=== PATIENT | male | born 1935 ===

== ENCOUNTER 2017-12-28 11:08 | Inpatient (IN) | payer OTHER ==
[2017-12-28] MEDS ORDERED: Sodium Chloride 0.9% 1,000 ML IV ONE (12:00)
--- NOTE | 2017-12-28 12:02 | ED PDOC ---
HPI:Nausea, Vomiting, Diarrhea Time Seen by Provider: 12/28/17 11:49 Chief Complaint (Nursing): Headache Chief Complaint (Provider): Dizziness History Per: Patient History/Exam Limitations: no limitations Onset/Duration Of Symptoms: Days (today) Additional Complaint(s): Pt. went up stairs and sit on a chair. He then started getting dizzy so he stood up and fell hitting his head on the ground. No numbness, tingles, weakness, abd pain, leg or arm pain, chest pain, dyspnea. No fever. Pt. with no headache or vision changes. Dizziness is like a light-headedness. NIHSS Stroke Scale - Date/Time Evaluation Performed Date Performed: 12/28/17 Time Performed: 11:20 When Was NIHSS Performed: Baseline - How Severe is the Stroke Level of Consciousness: 0=Alert LOC to Questions: 0=Both comments correct LOC to commands: 0=Obeys both correctly Best Gaze: 0=Normal Visual: 0=No visual loss Facial: 0=Normal Motor Arm - Left: 0=No drift Motor Arm - Right: 0=No drift Motor Leg - Left: 0=No drift Motor Leg - Right: 0=No drift Limb Ataxia: 1=Present Upper or Lower Sensory: 0=Normal Best Language: 0=No aphasia Dysarthia: 0=Normal articulation Extinction & Inattention (Neglect): 0=Normal, no object Score: 1 rTPA Inclusion/Exclusion - Refusal of Treatment Patient Refused Treatment: No - Inclusion Criteria for Altepase Patient is 18 years or Older: Yes The Clinical Diagnosis of Ischemic Stroke That is Causing a Potentially Disabling Neurological Deficit: No Time of Onset is Well Established to be Less Than 270 Minute Before Treatment Would Begin: Yes Risk/Benefit Discussed With Patient/Family Member Present: No Past Medical History Reviewed: Nursing Documentation, Vital Signs Vital Signs: Last Vital Signs Temp 98.1 F 12/28/17 11:11 Pulse 84 12/28/17 11:11 Resp 20 12/28/17 11:11 BP 176/99 H 12/28/17 11:11 Pulse Ox 97 12/28/17 11:11 - Medical History PMH: Anemia, Colonic Polyps, Diabetes, Gall Bladder Disease, HTN, Hypercholesterolemia, Hypothyroidism, Chronic Kidney Disease (NEPHRECTOMY 2006 RIGHT BENIGN MASS), TIA - Surgical History Surgical History: No Surg Hx - Family History Family History: States: Unknown Family Hx - Living Arrangements Living Arrangements: With Family - Social History Current smoker - smoking cessation education provided: No - Immunization History Hx Influenza Vaccination: Yes Hx Pneumococcal Vaccination: No - Home Medications Home Medications: Ambulatory Orders Medication Instructions Recorded Aspirin [Ecotrin] 81 mg PO DAILY 12/28/17 Ergocalciferol (Vitamin D2) 50,000 unit PO QWK 12/28/17 [Vitamin D2] Lactulose [Generlac] 15 ml PO DAILY 12/28/17 Levothyroxine [Synthroid] 75 mcg PO DAILY 12/28/17 Linagliptin [Tradjenta] 5 mg PO DAILY 12/28/17 Losartan [Cozaar] 100 mg PO DAILY 12/28/17 Omeprazole 20 mg PO DAILY 12/28/17 Pravastatin Sodium [Pravachol] 20 mg PO HS 12/28/17 - Allergies Allergies/Adverse Reactions: Allergies Allergy/AdvReac Type Severity Reaction Status Date / Time No Known Allergies Allergy Verified 12/28/17 11:24 Review of Systems ROS Statement: Except As Marked, All Systems Reviewed And Found Negative Gastrointestinal: Positive for: Nausea, Vomiting (nonbloody) Neurological: Positive for: Dizziness Physical Exam - Reviewed Nursing Documentation Reviewed: Yes Vital Signs Reviewed: Yes - Physical Exam Appears: Positive for: Uncomfortable Head Exam: Positive for: NORMAL INSPECTION, NORMOCEPHALIC. Negative for: ATRAUMATIC (R forehead abrasion and small hematoma; R cheek with abrasion.) Skin: Positive for: Normal Color, Warm, DRY Eye Exam: Positive for: EOMI, Normal appearance, PERRL ENT: Positive for: Normal ENT Inspection Neck: Positive for: Normal, Painless ROM Cardiovascular/Chest: Positive for: Regular Rate, Rhythm Respiratory: Positive for: CNT, Normal Breath Sounds Gastrointestinal/Abdominal: Positive for: Normal Exam, Soft. Negative for: Tenderness Back: Positive for: Normal Inspection. Negative for: L CVA Tenderness, R CVA Tenderness Extremity: Positive for: Normal ROM. Negative for: Tenderness, Pedal Edema Neurologic/Psych: Positive for: Alert, script girl II-XII, Oriented. Negative for: Motor/Sensory Deficits, Aphasia, Facial Droop - Laboratory Results Result Diagrams: 12/28/17 12:25 12/28/17 12:25 Interpretation Of Abn Labs: 15 wbc - ECG ECG: Positive for: Interpreted By Me, Viewed By Me ECG Rhythm: Positive for: Left Bundle Branch Block O2 Sat by Pulse Oximetry: 97 Pulse Ox Interpretation: Normal - Progress ED Course And Treament: IMPRESSION: Small Coon contusions are identified at the bilateral frontal and right temporal lobes without significant mass effect or even definite local edema at this time. Neurological and CT follow-up are advised. No significant mass effect. Right frontal chronic lobar infarction. Age-related degenerative changes appear age-appropriate. Bilateral basal ganglia chronic lacunes identified. 1346: Spoke with Dr. Amaral. Will admit ICU. Spoke with Dr. Gonzalez. Will admit for Dr. Lauren. Paged out to Dr. Sotelo and Dr. Villarreal. 1359: Spoke with Dr. Villarreal. Will consult. No additional tx at this time. Stable. AAOx3. Disposition - Clinical Impression Clinical Impression: Cerebral contusion without loss of consciousness, Brain bleed, Dizziness - Patient ED Disposition Is Patient to be Admitted: Yes Counseled Patient/Family Regarding: Studies Performed, Diagnosis - Disposition Disposition Time: 14:01 Condition: FAIR - Pt Status Changed To: Hospital Disposition Of: Inpatient - Admit Certification Admit to Inpatient:: After my assessment, the patient will require hospitalization for at least two midnights. This is because of the severity of symptoms shown, intensity of services needed, and/or the medical risk in this patient being treated as an outpatient. - POA Present On Arrival: Falls Or Trauma
[2017-12-28 12:31] LABS: BASO # 0.1 K/uL (0.0-0.2); BASO % 0.7 % (0.0-2.0); EOS # 0.5 K/uL (0.0-0.7); EOS % 3.1 % (0.0-4.0); HEMOGLOBIN 12.1 g/dL (12.0-18.0); LYMPH % 33.7 % (20.0-40.0); MEAN CELL VOLUME 98.2 fl (80.0-94.0); MEAN CORPUSCULAR HEMOGLOBIN 31.4 pg (27.0-31.0); MEAN PLATELET VOLUME 9.5 fl (7.2-11.7); MONO # 1.4 K/uL (0.0-0.8); MONO % 9.2 % (0.0-10.0); NEUT % 53.3 % (50.0-75.0); NRBC % 0.1 % (0.0-0.0); RBC 3.86 Mil/uL (4.40-5.90); RED CELL DISTRIBUTION WIDTH 14.6 % (11.5-14.5)
[2017-12-28 12:37] LABS: INR 0.9; PROTHROMBIN TIME 10.2 Seconds (9.8-13.1)
[2017-12-28 12:39] LABS: PARTIAL THROMBOPLASTIN TIME 26.3 Seconds (25.6-37.1)
[2017-12-28 12:45] LABS: ALB/GLOB RATIO 1.1 (1.0-2.1); ALBUMIN 4.4 g/dL (3.5-5.0); CALCIUM 9.4 mg/dL (8.4-10.2)
[2017-12-28 12:59] LABS: TROPONIN I 0.043 ng/mL (0.00-0.120)
--- NOTE | 2017-12-28 13:30 | CT ---
Date of service: 12/28/2017 PROCEDURE: CT HEAD WITHOUT CONTRAST. HISTORY: dizziness COMPARISON: None available. TECHNIQUE: Axial computed tomography images were obtained through the head/brain without intravenous contrast. Radiation dose: Total exam DLP = 853.01 mGy-cm. This CT exam was performed using one or more of the following dose reduction techniques: Automated exposure control, adjustment of the mA and/or kV according to patient size, and/or use of iterative reconstruction technique. FINDINGS: HEMORRHAGE: Sub cm likely hemorrhage is seen at the subcortical bilateral frontal lobes approaching the vertex the finding is greater the right than left sides. This is favored over calcification and the likely reflect cou contusions. An additional 2 contusion is seen at the right temporal lobe anteriorly. Neurological and CT follow-up are advised. No large intracranial hemorrhage is identified. No significant mass effect. BRAIN: Good corticomedullary differentiation is seen. Proportional, diffuse expansion of the ventriculosulcal and cisternal spaces is appreciated with white matter lucency compatible with diffuse cerebral atrophy and chronic microangiopathy. No suspicious extra-axial fluid collection is identified and the midline brain anatomy appears grossly nonfocal as imaged. A chronic infarct is identified at the right frontal vertex with bilateral basal ganglia chronic lacunes identified.. VENTRICLES: Unremarkable. No hydrocephalus. CALVARIUM: No destructive bony lesion or displaced fracture identified including through the skullbase. Cavernous ICA atherosclerotic changes are identified. PARANASAL SINUSES: Unremarkable as visualized. No significant inflammatory changes. MASTOID AIR CELLS: Unremarkable as visualized. No inflammatory changes. OTHER FINDINGS: None. IMPRESSION: Small Coon contusions are identified at the bilateral frontal and right temporal lobes without significant mass effect or even definite local edema at this time. Neurological and CT follow-up are advised. No significant mass effect. Right frontal chronic lobar infarction. Age-related degenerative changes appear age-appropriate. Bilateral basal ganglia chronic lacunes identified. Findings discussed with Dr. De La O with written down and read back verification 12/28/2017, 1:15 p.m..
--- NOTE | 2017-12-28 14:06 | RAD ---
Date of service: 12/28/2017 HISTORY: Code Stroke COMPARISON: No prior. FINDINGS: LUNGS: The lungs are well inflated. There is mild pulmonary venous congestion. PLEURA: No pleural effusions or pneumothorax. CARDIOVASCULAR: There is mild cardiomegaly and prominent central vasculature. Atherosclerotic aortic arch calcifications are present. OSSEOUS STRUCTURES: Within normal limits for the patient's age. VISUALIZED UPPER ABDOMEN: Normal. OTHER FINDINGS: None. IMPRESSION: Mild cardiomegaly and pulmonary venous congestion. No active pulmonary disease.
[2017-12-28] MEDS ORDERED: Labetalol 5 mg/ml Inj 20ML IVP STA (14:30)
[2017-12-28] MEDS ORDERED: Labetalol 5mg/ml (4ml) ONE (14:37)
[2017-12-28] MEDS ORDERED: Labetalol 5mg/ml (4ml) IVP STA (14:47)
--- NOTE | 2017-12-28 15:14 | CP.PCM.PN ---
Subjective - Date & Time of Evaluation Date of Evaluation: 12/28/17 Time of Evaluation: 15:08 - Subjective Subjective: called by ER about this man who felt dizzy, fell and hit his head CT shows a few scattered hematomas each a few mm in size over high frontal and temporal areas These hematomas are not in usual locations for contra coup contusions as they normally occur at base of brain where the brain can rub against skull In this case they are located well within areas where the brain would not contact any hard surfaces. It is possible that thet are minute embolic haemorrhages In any event they are not amenable to surgery and further f/u should be by neurology Objective - Vital Signs/Intake and Output Vital Signs (last 24 hours): Temp Pulse Resp BP Pulse Ox 98.6 F 75 22 176/99 H 97 12/28/17 13:30 12/28/17 13:30 12/28/17 13:30 12/28/17 11:11 12/28/17 14:01 - Medications Medications: Current Medications Sodium Chloride (Sodium Chloride 0.9%) 1,000 mls @ 100 mls/hr IV .Q10H ONE Stop: 12/28/17 21:59 Last Admin: 12/28/17 12:40 Dose: 100 mls/hr - Labs Labs: 12/28/17 12:25 12/28/17 12:25 PT 10.2 Seconds (9.8-13.1) 12/28/17 12:25 INR 0.9 12/28/17 12:25 APTT 26.3 Seconds (25.6-37.1) 12/28/17 12:25
--- NOTE | 2017-12-28 15:58 | CP.PCM.HP ---
<Nena Montgomery - Last Filed: 12/28/17 18:06> History of Present Illness - History of Present Illness History of Present Illness: 82 yo M with hx HTN, DM2, hyperlipidemia, hypothyroidism, anemia, colon polyps, CKD, with history of R sided nephrectomy and prostatectomy, admitted for syncope and dizziness. This morning around 11 am, patient was sitting at breakfast table, and felt dizzy. He stated to his family he was dizzy and was going to go take his medications and then syncopized and fell down; had his head hit the wooden floor, but did not lose consciousness. He continued to feel dizzy. He did not vomit at first, but then had 2 episodes of vomiting. In the ED, he had an episode of vomiting as well. He denies headache, chest pain, shortness of breath, numbness, vision changes. Med hx: HTN, DM2, hyperlipidemia, hypothyroidism, anemia, colon polyps, CKD, Surg hx: history of R sided nephrectomy, prostatectomy Soc hx: denies smoking in the past or present, alcohol, drug use Fam hx: noncontributory Allergies: NKDA Meds: reviewed in med rec in ED: Vitals: hypertensive 176/99, HR 97, O2 sat 97, RR 20, afebrile 98.1 EKG: LBBB (not new finding, EMR has EKG from 2016 with LBBB) Labs: WBC 15, BUN/Cr 40/2.1, CXR: mild cardiomegaly; pulmonary venous congestion Head CT: Findings of small coup contusions at bilateral frontal and right temporal lobes without significant mass effect or even definite local edema. Right chronic lobar infarction. Age related degenerative changes appear age- appropriate. Bilateral basal ganglia chronic lacunes identified. Present on Admission - Present on Admission Any Indicators Present on Admission: No Review of Systems - Review of Systems Review of Systems: reviewed; as per HPI Past Patient History - Infectious Disease Hx of Infectious Diseases: None - Past Medical History & Family History Past Medical History?: Yes - Past Social History Smoking Status: Never Smoked Alcohol: None Drugs: Denies - CARDIAC Hx Hypercholesterolemia: Yes Hx Hypertension: Yes - PULMONARY Hx Respiratory Disorders: No - NEUROLOGICAL Hx Transient Ischemic Attacks (TIA): Yes - HEENT Hx HEENT Problems: Yes Hx Cataracts: Yes - RENAL Hx Chronic Kidney Disease: Yes (NEPHRECTOMY 2006 RIGHT BENIGN MASS) - ENDOCRINE/METABOLIC Hx Hypothyroidism: Yes - HEMATOLOGICAL/ONCOLOGICAL Hx AIDS: No Hx Anemia: Yes Hx Human Immunodeficiency Virus (HIV): No - INTEGUMENTARY Hx Dermatological Problems: Yes (DARKENED AREAS LEGS ANF FEET) - MUSCULOSKELETAL/RHEUMATOLOGICAL Hx Musculoskeletal Disorders: Yes Hx Falls: Yes Hx Osteoarthritis: Yes - GASTROINTESTINAL Hx Gall Bladder Disease: Yes - GENITOURINARY/GYNECOLOGICAL Hx Genitourinary Disorders: Yes Hx Prostate Problems: Yes (TURP 03/09) - PSYCHIATRIC Hx Psychophysiologic Disorder: No Hx Substance Use: No - SURGICAL HISTORY Hx Surgeries: Yes Hx Herniorrhaphy: Yes Other/Comment: Nephrectomy R kidney 2005,TURP in 2005. Prostate surgery. RIGHT NEPHRECTOMY - ANESTHESIA Hx Anesthesia: Yes Hx Anesthesia Reactions: No Hx Malignant Hyperthermia: No Meds Allergies/Adverse Reactions: Allergies Allergy/AdvReac Type Severity Reaction Status Date / Time No Known Allergies Allergy Verified 12/28/17 11:24 Physical Exam - Constitutional Additional comments: appears tired - Head Exam Additional comments: abrasion on right jew - Eye Exam Eye Exam: EOMI, PERRL - ENT Exam ENT Exam: Mucous Membranes Moist - Neck Exam Neck exam: Positive for: Full Rom - Respiratory Exam Respiratory Exam: Clear to Auscultation Bilateral, NORMAL BREATHING PATTERN. absent: Respiratory Distress - Cardiovascular Exam Cardiovascular Exam: REGULAR RHYTHM, +S1, +S2 - GI/Abdominal Exam GI & Abdominal Exam: Normal Bowel Sounds, Soft. absent: Tenderness - Extremities Exam Extremities exam: Positive for: pedal pulses present. Negative for: calf tenderness, pedal edema Additional comments: evidence of chronic vascular changes Results - Vital Signs Recent Vital Signs: Last Vital Signs Temp 98.6 F 12/28/17 15:20 Pulse 78 12/28/17 15:20 Resp 20 12/28/17 15:20 BP 147/86 12/28/17 15:20 Pulse Ox 98 12/28/17 15:20 - Labs Result Diagrams: 12/28/17 12:25 12/28/17 12:25 Labs: Laboratory Results - last 24 hr 12/28/17 12/28/17 12/28/17 11:31 12:25 12:25 WBC 15.0 H RBC 3.86 L Hgb 12.1 Hct 37.9 MCV 98.2 H MCH 31.4 H MCHC 32.0 L RDW 14.6 H Plt Count 236 MPV 9.5 Neut % (Auto) 53.3 Lymph % (Auto) 33.7 Jack % (Auto) 9.2 Eos % (Auto) 3.1 Baso % (Auto) 0.7 Neut # (Auto) 8.0 H Lymph # (Auto) 5.0 H Jack # (Auto) 1.4 H Eos # (Auto) 0.5 Baso # (Auto) 0.1 PT INR APTT Sodium 146 Potassium 4.2 Chloride 116 H Carbon Dioxide 17 L Anion Gap 17 BUN 40 H Creatinine 2.1 H Est GFR ( Amer) 37 Est GFR (Non-Af Amer) 30 POC Glucose (mg/dL) 122 H Random Glucose 123 H Hemoglobin A1c Calcium 9.4 Total Bilirubin 0.8 AST 29 ALT 30 Alkaline Phosphatase 127 H Troponin I 0.0430 Total Protein 8.3 H Albumin 4.4 Globulin 3.9 Albumin/Globulin Ratio 1.1 Triglycerides 566 H Cholesterol 217 H LDL Cholesterol Direct 81 HDL Cholesterol 38 Blood Type Antibody Screen BBK History Checked 12/28/17 12/28/17 12/28/17 12:25 12:25 14:32 WBC RBC Hgb Hct MCV MCH MCHC RDW Plt Count MPV Neut % (Auto) Lymph % (Auto) Jack % (Auto) Eos % (Auto) Baso % (Auto) Neut # (Auto) Lymph # (Auto) Jack # (Auto) Eos # (Auto) Baso # (Auto) PT 10.2 INR 0.9 APTT 26.3 Sodium Potassium Chloride Carbon Dioxide Anion Gap BUN Creatinine Est GFR ( Amer) Est GFR (Non-Af Amer) POC Glucose (mg/dL) Random Glucose Hemoglobin A1c 5.7 Calcium Total Bilirubin AST ALT Alkaline Phosphatase Troponin I Total Protein Albumin Globulin Albumin/Globulin Ratio Triglycerides Cholesterol LDL Cholesterol Direct HDL Cholesterol Blood Type O POSITIVE Antibody Screen Negative BBK History Checked Patient has bt Assessment & Plan - Assessment and Plan (Free Text) Assessment: 82 yo male with history of HTN, DM2, hyperlipidemia, hypothyroidism, anemia, colon polyps, CKD, with history of R sided nephrectomy and prostatectomy, admitted for syncope and dizziness. 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 Found to have mild cardiomegaly; pulmonary venous congestion on CXR. CT head: Findings of small coup contusions at bilateral frontal and right temporal lobes without significant mass effect or even definite local edema. Right chronic lobar infarction. Age related degenerative changes appear age-appropriate. Bilateral basal ganglia chronic lacunes identified. Neurology and neurosurgery consulted. Admitted to ICU. Plan: Coup contusions on CT - Secondary to fall due to dizziness - Head CT: bilateral frontal and right temporal lobes - Admitted to ICU; training lead consult - Neurology consult - Neurosurgery consult - Neurocheck Q2 hrs - Physical therapy HTN - Resume home meds losartan - Hydralazine 10 mg IVP PRN Cardiomegaly - Echocardiogram ordered - ProBNP Hypertriglyceridemia/Hyperlipidemia - Resume home meds Diabetes - Accuchecks ACHS - Insulin coverage scale and hypoglycemia protocol - Hold home meds Hypothyroidism - TSH and free T4 - Resume home dose synthroid Diet - Passed swallow screen - Heart healthy/moderate carb diet GI Prophylaxis -Protonix 20 mg daily DVT prophylaxis - SCD Pt seen/discussed with Dr. Lance. <Dangelo Lance - Last Filed: 12/28/17 18:50> Results - Vital Signs Recent Vital Signs: Last Vital Signs Temp 97.5 F L 12/28/17 16:15 Pulse 81 12/28/17 18:00 Resp 21 12/28/17 18:00 BP 179/75 H 12/28/17 18:00 Pulse Ox 97 12/28/17 18:00 - Labs Result Diagrams: 12/28/17 12:25 12/28/17 12:25 Labs: Laboratory Results - last 24 hr 12/28/17 12/28/17 12/28/17 11:31 12:25 12:25 WBC 15.0 H RBC 3.86 L Hgb 12.1 Hct 37.9 MCV 98.2 H MCH 31.4 H MCHC 32.0 L RDW 14.6 H Plt Count 236 MPV 9.5 Neut % (Auto) 53.3 Lymph % (Auto) 33.7 Jack % (Auto) 9.2 Eos % (Auto) 3.1 Baso % (Auto) 0.7 Neut # (Auto) 8.0 H Lymph # (Auto) 5.0 H Jack # (Auto) 1.4 H Eos # (Auto) 0.5 Baso # (Auto) 0.1 PT INR APTT Sodium 146 Potassium 4.2 Chloride 116 H Carbon Dioxide 17 L Anion Gap 17 BUN 40 H Creatinine 2.1 H Est GFR ( Amer) 37 Est GFR (Non-Af Amer) 30 POC Glucose (mg/dL) 122 H Random Glucose 123 H Hemoglobin A1c Calcium 9.4 Total Bilirubin 0.8 AST 29 ALT 30 Alkaline Phosphatase 127 H Troponin I 0.0430 Total Protein 8.3 H Albumin 4.4 Globulin 3.9 Albumin/Globulin Ratio 1.1 Triglycerides 566 H Cholesterol 217 H LDL Cholesterol Direct 81 HDL Cholesterol 38 Blood Type Antibody Screen BBK History Checked 12/28/17 12/28/17 12/28/17 12:25 12:25 14:32 WBC RBC Hgb Hct MCV MCH MCHC RDW Plt Count MPV Neut % (Auto) Lymph % (Auto) Jack % (Auto) Eos % (Auto) Baso % (Auto) Neut # (Auto) Lymph # (Auto) Jack # (Auto) Eos # (Auto) Baso # (Auto) PT 10.2 INR 0.9 APTT 26.3 Sodium Potassium Chloride Carbon Dioxide Anion Gap BUN Creatinine Est GFR ( Amer) Est GFR (Non-Af Amer) POC Glucose (mg/dL) Random Glucose Hemoglobin A1c 5.7 Calcium Total Bilirubin AST ALT Alkaline Phosphatase Troponin I Total Protein Albumin Globulin Albumin/Globulin Ratio Triglycerides Cholesterol LDL Cholesterol Direct HDL Cholesterol Blood Type O POSITIVE Antibody Screen Negative BBK History Checked Patient has bt Attending/Attestation - Attestation I have personally seen and examined this patient.: Yes I have fully participated in the care of the patient.: Yes I have reviewed all pertinent clinical information: Yes Notes (Text): Patient seen and examined with the resident, agree with above etiology of symptoms most likely related to Elevated BP strict bp control (maintain SBP<140 for optimization of treatment) neuro checks, Neurology consultation for their expert opinion
[2017-12-28] MEDS ORDERED: Ergocalciferol 50,000 Intl Units Cap PO SCH (16:15)
[2017-12-28] MEDS ORDERED: Dextrose 50% SYRINGE Inj (50 ml) IV PRN (17:51)
[2017-12-28] MEDS ORDERED: Glucagon Recombinant 1 mg Inj IM PRN (17:51)
--- NOTE | 2017-12-28 18:08 | CP.CCUPN ---
CCU Subjective - Physician Review Subjective (Free Text): 12/28/17 18:08 The patient was Seen/interviewed and examined by me at the bedside during ICU round, Medical records reviewed and Management issues were discussed and formulated with the house staff. Events reviewed 82 Years old Male with PMHx of HTN, Hypercholesterolemia, Hypothyroidism, Chronic Kidney Disease S/P nephrectomy 2005 right benign mass, TIA, Anemia, Colonic Polyps, Diabetes and Gall Bladder Disease Who presented to the Emergency department for evaluation of Syncope and fall Patient stated that while was sitting at breakfast table, and felt dizzy and then syncopized and fell down; he hit his head again the wooden floor. In the ER Head Ct scan showed few scattered hematomas each a few mm in size over high frontal and temporal areas Patient is hemodynamically stable AAOx3, denies lose consciousness, No headaches, vision changes, vertigo, double vision, his only complaint is continued to feel dizzy. EKG with Old Left BBB Head Ct scan: Small Coon contusions are identified at the bilateral frontal and right temporal lobes without significant mass effect or even definite local edema at this time. Neurological and CT follow-up are advised. No significant mass effect. Right frontal chronic lobar infarction. Age-related degenerative changes appear age-appropriate. Bilateral basal ganglia chronic lacunes identified. Consulted Neurology Dr. Sotelo and neurosurgery Dr. Villarreal. Patient admitted to the ICU for frequent Neuro-check CCU Objective - Vital Signs / Intake & Output Vital Signs (Last 4 hours): Vital Signs Temp Pulse Pulse Resp BP Pulse Ox 12/28/17 16:15 97.5 F L 76 18 172/74 H 96 12/28/17 15:20 98.6 F 78 20 147/86 98 12/28/17 15:17 97.9 F 70 20 172/74 H 97 12/28/17 15:15 75 15 12/28/17 14:35 98.6 F 74 20 190/78 H Intake and Output (Last 8hrs): Intake & Output 12/28/17 12/28/17 12/28/17 06:59 14:59 22:59 Output Total 275 Balance -275 Weight 136 lb Output: Urine 275 Urine, Voided 275 - Physical Exam Physical Exam Limitations: Positive for: Clinical Condition Head: Positive for: Atraumatic, Normocephalic Pupils: Positive for: PERRL. Negative for: Sluggish, Non-Reactive Extroacular Muscles: Positive for: EOMI Conjunctiva: Positive for: Normal Mouth: Positive for: Moist Mucous Membranes Nose (Internal): Positive for: Normal Inspection Neck: Positive for: Normal Range of Motion, Trachea Midline. Negative for: Meningeal Signs, MIDLINE TENDERNESS, Paraspinal Tenderness, JVD, Lymphadenopathy, Bruit, Other Respiratory/Chest: Positive for: Clear to Auscultation. Negative for: Rales, Retracting, Rhonchi Abdomen: Positive for: Normal Bowel Sounds. Negative for: Tenderness, Distention Lower Extremity: Positive for: Normal Inspection. Negative for: Edema, CALF TENDERNESS Neurological: Positive for: GCS=15 Psychiatric: Positive for: Alert, Oriented x 3 - Medications Active Medications: Active Medications Generic Name Dose Route Start Last Admin Trade Name Freq PRN Reason Stop Dose Admin Dextrose 0 ml 12/28/17 17:51 Dextrose 50% Inj IV STAT PRN Hypoglycemia Protocol Protocol Dextrose 0 gm 12/28/17 17:51 Glutose 15 PO ONCE PRN Hypoglycemia Protocol Protocol Ergocalciferol 1 cap 12/28/17 16:15 Drisdol 50,000 Intl Units Cap PO QWK ASHLEY Glucagon 0 mg 12/28/17 17:51 Glucagen Diagnostic Kit IM STAT PRN Hypoglycemia Protocol Protocol Hydralazine HCl 10 mg 12/28/17 16:52 Apresoline IV Q6 PRN Systolic Blood Pressure Sodium Chloride 1,000 mls @ 100 mls/hr 12/28/17 12:00 12/28/17 12:40 Sodium Chloride 0.9% IV 12/28/17 21:59 100 mls/hr .Q10H ONE Administration Insulin Human Lispro 0 units 12/28/17 22:00 Humalog SC ACHS [facility] Protocol Levothyroxine Sodium 75 mcg 12/29/17 06:30 Synthroid PO DAILY@0630 [facility] Losartan Potassium 100 mg 12/29/17 09:00 Cozaar PO DAILY [facility] Losartan Potassium 100 mg 12/29/17 17:15 Cozaar PO 12/29/17 17:16 ONCE ONE Pantoprazole Sodium 20 mg 12/29/17 09:00 Protonix Ec Tab PO DAILY [facility] Pravastatin Sodium 20 mg 12/28/17 22:00 Pravachol PO [facility] - Patient Studies Lab Studies: Lab Studies 12/28/17 12/28/17 12/28/17 Range/Units 14:32 12:25 12:25 WBC (4.8-10.8) K/uL RBC (4.40-5.90) Mil/uL Hgb (12.0-18.0) g/dL Hct (35.0-51.0) % MCV (80.0-94.0) fl MCH (27.0-31.0) pg MCHC (33.0-37.0) g/dL RDW (11.5-14.5) % Plt Count (130-400) K/uL MPV (7.2-11.7) fl Neut % (Auto) (50.0-75.0) % Lymph % (Auto) (20.0-40.0) % [place] % (Auto) (0.0-10.0) % Eos % (Auto) (0.0-4.0) % Baso % (Auto) (0.0-2.0) % Neut # (Auto) (1.8-7.0) K/uL Lymph # (Auto) (1.0-4.3) K/uL [place] # (Auto) (0.0-0.8) K/uL Eos # (Auto) (0.0-0.7) K/uL Baso # (Auto) (0.0-0.2) K/uL PT 10.2 (9.8-13.1) Seconds INR 0.9 APTT 26.3 (25.6-37.1) Seconds Sodium (132-148) mmol/l Potassium (3.6-5.0) MMOL/L Chloride (98-107) mmol/L Carbon Dioxide (22-30) mmol/L Anion Gap (10-20) BUN (9-20) mg/dl Creatinine (0.8-1.5) mg/dl Est GFR ( Amer) Est GFR (Non-Af Amer) POC Glucose (mg/dL) (65-110) mg/dL Random Glucose (75-110) mg/dL Hemoglobin A1c 5.7 (4.2-6.5) % Calcium (8.4-10.2) mg/dL Total Bilirubin (0.2-1.3) mg/dl AST (17-59) U/L ALT (21-72) U/L Alkaline Phosphatase (38-126) U/L Troponin I (0.00-0.120) ng/mL Total Protein (6.3-8.2) G/DL Albumin (3.5-5.0) g/dL Globulin (2.2-3.9) gm/dL Albumin/Globulin Ratio (1.0-2.1) Triglycerides (0-149) mg/DL Cholesterol (0-199) mg/dL LDL Cholesterol Direct (0-129) mg/dL HDL Cholesterol (30-70) MG/DL Blood Type O POSITIVE Antibody Screen Negative BBK History Checked Patient has bt 12/28/17 12/28/17 12/28/17 Range/Units 12:25 12:25 11:31 WBC 15.0 H (4.8-10.8) K/uL RBC 3.86 L (4.40-5.90) Mil/uL Hgb 12.1 (12.0-18.0) g/dL Hct 37.9 (35.0-51.0) % MCV 98.2 H (80.0-94.0) fl MCH 31.4 H (27.0-31.0) pg MCHC 32.0 L (33.0-37.0) g/dL RDW 14.6 H (11.5-14.5) % Plt Count 236 (130-400) K/uL MPV 9.5 (7.2-11.7) fl Neut % (Auto) 53.3 (50.0-75.0) % Lymph % (Auto) 33.7 (20.0-40.0) % [place] % (Auto) 9.2 (0.0-10.0) % Eos % (Auto) 3.1 (0.0-4.0) % Baso % (Auto) 0.7 (0.0-2.0) % Neut # (Auto) 8.0 H (1.8-7.0) K/uL Lymph # (Auto) 5.0 H (1.0-4.3) K/uL [place] # (Auto) 1.4 H (0.0-0.8) K/uL Eos # (Auto) 0.5 (0.0-0.7) K/uL Baso # (Auto) 0.1 (0.0-0.2) K/uL PT (9.8-13.1) Seconds INR APTT (25.6-37.1) Seconds Sodium 146 (132-148) mmol/l Potassium 4.2 (3.6-5.0) MMOL/L Chloride 116 H (98-107) mmol/L Carbon Dioxide 17 L (22-30) mmol/L Anion Gap 17 (10-20) BUN 40 H (9-20) mg/dl Creatinine 2.1 H (0.8-1.5) mg/dl Est GFR ( Amer) 37 Est GFR (Non-Af Amer) 30 POC Glucose (mg/dL) 122 H (65-110) mg/dL Random Glucose 123 H (75-110) mg/dL Hemoglobin A1c (4.2-6.5) % Calcium 9.4 (8.4-10.2) mg/dL Total Bilirubin 0.8 (0.2-1.3) mg/dl AST 29 (17-59) U/L ALT 30 (21-72) U/L Alkaline Phosphatase 127 H (38-126) U/L Troponin I 0.0430 (0.00-0.120) ng/mL Total Protein 8.3 H (6.3-8.2) G/DL Albumin 4.4 (3.5-5.0) g/dL Globulin 3.9 (2.2-3.9) gm/dL Albumin/Globulin Ratio 1.1 (1.0-2.1) Triglycerides 566 H (0-149) mg/DL Cholesterol 217 H (0-199) mg/dL LDL Cholesterol Direct 81 (0-129) mg/dL HDL Cholesterol 38 (30-70) MG/DL Blood Type Antibody Screen BBK History Checked Laboratory Results - last 24 hr 12/28/17 12/28/17 12/28/17 11:31 12:25 12:25 WBC 15.0 H RBC 3.86 L Hgb 12.1 Hct 37.9 MCV 98.2 H MCH 31.4 H MCHC 32.0 L RDW 14.6 H Plt Count 236 MPV 9.5 Neut % (Auto) 53.3 Lymph % (Auto) 33.7 [place] % (Auto) 9.2 Eos % (Auto) 3.1 Baso % (Auto) 0.7 Neut # (Auto) 8.0 H Lymph # (Auto) 5.0 H [place] # (Auto) 1.4 H Eos # (Auto) 0.5 Baso # (Auto) 0.1 PT INR APTT Sodium 146 Potassium 4.2 Chloride 116 H Carbon Dioxide 17 L Anion Gap 17 BUN 40 H Creatinine 2.1 H Est GFR ( Amer) 37 Est GFR (Non-Af Amer) 30 POC Glucose (mg/dL) 122 H Random Glucose 123 H Hemoglobin A1c Calcium 9.4 Total Bilirubin 0.8 AST 29 ALT 30 Alkaline Phosphatase 127 H Troponin I 0.0430 Total Protein 8.3 H Albumin 4.4 Globulin 3.9 Albumin/Globulin Ratio 1.1 Triglycerides 566 H Cholesterol 217 H LDL Cholesterol Direct 81 HDL Cholesterol 38 Blood Type Antibody Screen BBK History Checked 12/28/17 12/28/17 12/28/17 12:25 12:25 14:32 WBC RBC Hgb Hct MCV MCH MCHC RDW Plt Count MPV Neut % (Auto) Lymph % (Auto) [place] % (Auto) Eos % (Auto) Baso % (Auto) Neut # (Auto) Lymph # (Auto) [place] # (Auto) Eos # (Auto) Baso # (Auto) PT 10.2 INR 0.9 APTT 26.3 Sodium Potassium Chloride Carbon Dioxide Anion Gap BUN Creatinine Est GFR ( Amer) Est GFR (Non-Af Amer) POC Glucose (mg/dL) Random Glucose Hemoglobin A1c 5.7 Calcium Total Bilirubin AST ALT Alkaline Phosphatase Troponin I Total Protein Albumin Globulin Albumin/Globulin Ratio Triglycerides Cholesterol LDL Cholesterol Direct HDL Cholesterol Blood Type O POSITIVE Antibody Screen Negative BBK History Checked Patient has bt EKG/Cardiology Studies: Cardiology / EKG Studies 12/28/17 11:56 ELECTROCARDIOGRAM Stat Comment: Mode Of Transportation: Reason For Exam: dizziness Fingerstick Blood Sugar Results: 122 Review of Systems - Constitutional Constitutional: absent: Fever, Chills, Sweats, Weakness, Malaise - Respiratory Respiratory: absent: As Per HPI, Cough, Dyspnea, Hemoptysis, Dyspnea on Exertion, Wheezing, Snoring, Stridor, Pain on Inspiration, Chest Congestion, Excessive Mucous Production, Change in Mucous Color, Pain with Coughing, Other, UNREMARKABLE - Gastrointestinal Gastrointestinal: absent: As Per HPI, Abdominal Pain, Belching, Bloating, Change in Bowel Habits, Change in Stool Character, Coffee Ground Emesis, Constipation, Cramping, Diarrhea, Dyspepsia, Dysphagia, Early Satiety, Excessive Flatus, Fecal Incontinence, Heartburn, Hematemesis, Hematochezia, Loose Stools, Melena, Nausea, Odynophagia, Temesmus, Vomiting, Other, UNREMARKABLE Critical Care Progress Note - Extremities/Vascular Does the Patient have a Central Venous Catheter?: No Does the Patient need a Central Venous Catheter?: No Does the Patient have a Christensen Catheter?: No Does the Patient need a Christensen Catheter?: No - Nutrition Nutrition: Nutrition Category Date Time Status Heart Healthy Diet [DIET] Diets 12/29/17 Breakfast Active Assessment/Plan (1) Brain bleed Current Visit: Yes Status: Acute (2) Cerebral contusion without loss of consciousness Current Visit: Yes Status: Acute (3) Dizziness Current Visit: Yes Status: Acute Comment: give Antivert as needed. (4) BPH (benign prostatic hypertrophy) Current Visit: No Status: Acute Comment: continue Flomax 0.4mg and Proscar 5mg (5) HTN (hypertension) Current Visit: No Status: Acute Comment: Continue Cozaar 100mg, vital signs q4h. (6) Hypothyroidism Current Visit: No Status: Acute Comment: continue home Synthroid. (7) LBBB (left bundle branch block) Current Visit: No Status: Acute Comment: Patient was scheduled for lap cholecystectomy today, however will need cardiology clearance. Patient's family not comfortable with patient going to surgery without medical clearance. Dr. Mcclendon will see patient for cardiac clearance. Patient had an echo of less than 50% last December Dr. Mcclendon consulted for cardiac clerance. Will monitor patient on tele. (8) Prophylactic measure Current Visit: No Status: Acute Comment: Hold VTE due to pending surgery, scds, and protonix 40mg ect tab. (9) Diabetes mellitus Current Visit: No Status: Chronic Comment: Will hold Metformin for now. Accu checks and sliding scale insulin as needed.
--- NOTE | 2017-12-28 18:24 | CARD ---
APPROVED REPORT Date of service: 12/28/2017 EKG Measurement Heart [id number] MD [id number] <Conclusion> Normal sinus rhythm Left bundle branch block Abnormal ECG
[2017-12-28] MEDS: Pravastatin Sodium 20 MG TAB PO SCH (21:42)
[2017-12-28] MEDS: Insulin Lispro (humaLOG) 100 Units/ml Inj SC SCH (22:03)
[2017-12-29 05:40] LABS: BASO # 0.1 K/uL (0.0-0.2); BASO % 0.6 % (0.0-2.0); EOS % 0.4 % (0.0-4.0); HEMOGLOBIN 11.4 g/dL (12.0-18.0); LYMPH # 1.6 K/uL (1.0-4.3); LYMPH % 13.8 % (20.0-40.0); MEAN CELL VOLUME 94.2 fl (80.0-94.0); MEAN CORPUSCULAR HEMOGLOBIN 31.4 pg (27.0-31.0); MEAN CORPUSCULAR HGB CONC 33.3 g/dL (33.0-37.0); MONO # 1.4 K/uL (0.0-0.8); MONO % 11.9 % (0.0-10.0); NEUT # 8.7 K/uL (1.8-7.0); NEUT % 73.3 % (50.0-75.0); RBC 3.63 Mil/uL (4.40-5.90); RED CELL DISTRIBUTION WIDTH 14.4 % (11.5-14.5); WHITE BLOOD COUNT 11.9 K/uL (4.8-10.8)
[2017-12-29] MEDS: Levothyroxine 75 MCG TAB PO SCH (05:44)
[2017-12-29 05:53] LABS: ALB/GLOB RATIO 1.1 (1.0-2.1); CALCIUM 9.3 mg/dL (8.4-10.2)
[2017-12-29] MEDS ORDERED: Labetalol 5mg/ml (4ml) IVP PRN (06:54)
[2017-12-29] MEDS ORDERED: Influenza Vaccine 60 MCG/0.5 ML SYR (3 yr & up) IM ONE (07:29)
[2017-12-29] MEDS ORDERED: Pneumococcal 23-Valent Vaccine IM ONE (07:29)
[2017-12-29] MEDS: Pantoprazole 20 mg EC Tab PO SCH (09:43)
--- NOTE | 2017-12-29 11:20 | CP.PCM.PN ---
<Nena Montgomery - Last Filed: 12/29/17 11:04> Subjective - Date & Time of Evaluation Date of Evaluation: 12/29/17 Time of Evaluation: 10:40 - Subjective Subjective: Pt seen this morning, laying in bed, family at bedside. He appears much more alert and awake today, is able to conversate without difficulty. Tolerated breakfast without difficulty. He no longer feels dizzy while sitting in bed, but felt dizzy upon standing this morning when PT tried to work with him. Objective - Vital Signs/Intake and Output Vital Signs (last 24 hours): Temp Pulse Resp BP Pulse Ox 98.8 F 82 16 163/88 H 98 12/29/17 08:00 12/29/17 09:54 12/29/17 09:54 12/29/17 09:54 12/29/17 09:54 - Medications Medications: Current Medications Dextrose (Dextrose 50% Inj) 0 ml IV STAT PRN; Protocol PRN Reason: Hypoglycemia Protocol Dextrose (Glutose 15) 0 gm PO ONCE PRN; Protocol PRN Reason: Hypoglycemia Protocol Ergocalciferol (Drisdol 50,000 Intl Units Cap) 1 cap PO QWK [facility] Glucagon (Glucagen Diagnostic Kit) 0 mg IM STAT PRN; Protocol PRN Reason: Hypoglycemia Protocol Hydralazine HCl (Apresoline) 10 mg IV Q6 PRN PRN Reason: Systolic Blood Pressure Insulin Human Lispro (Humalog) 0 units SC [facility]; Protocol Last Admin: 12/28/17 22:03 Dose: Not Given Labetalol HCl (Trandate) 20 mg IVP Q4 PRN PRN Reason: Systolic Blood Pressure Levothyroxine Sodium (Synthroid) 75 mcg PO DAILY@0630 [facility] Last Admin: 12/29/17 05:44 Dose: 75 mcg Losartan Potassium (Cozaar) 100 mg PO DAILY [facility] Last Admin: 12/29/17 09:35 Dose: 100 mg Losartan Potassium (Cozaar) 100 mg PO ONCE ONE Stop: 12/29/17 17:16 Metoprolol Tartrate (Lopressor) 50 mg PO Q12 [facility] Last Admin: 12/29/17 09:41 Dose: 50 mg Pantoprazole Sodium (Protonix Ec Tab) 20 mg PO DAILY [facility] Last Admin: 12/29/17 09:43 Dose: 20 mg Pravastatin Sodium (Pravachol) 20 mg PO HS [facility] Last Admin: 12/28/17 21:42 Dose: 20 mg - Labs Labs: 12/29/17 04:30 12/29/17 04:30 PT 10.2 Seconds (9.8-13.1) 12/28/17 12:25 INR 0.9 12/28/17 12:25 APTT 26.3 Seconds (25.6-37.1) 12/28/17 12:25 - Constitutional Appears: Non-toxic, No Acute Distress - Head Exam Head Exam: NORMOCEPHALIC - Eye Exam Eye Exam: EOMI - ENT Exam ENT Exam: Mucous Membranes Moist - Respiratory Exam Respiratory Exam: NORMAL BREATHING PATTERN. absent: Respiratory Distress Additional comments: good air entry bilaterally; some coarse sounds throughout - Cardiovascular Exam Cardiovascular Exam: REGULAR RHYTHM, +S1, +S2 - GI/Abdominal Exam GI & Abdominal Exam: Soft. absent: Tenderness - Extremities Exam Extremities Exam: absent: Calf Tenderness, Pedal Edema - Neurological Exam Neurological Exam: Alert - Skin Skin Exam: Dry, Warm Assessment and Plan - Assessment and Plan (Free Text) Assessment: 82 yo male with history of HTN, DM2, hyperlipidemia, hypothyroidism, anemia, colon polyps, CKD, with history of R sided nephrectomy and prostatectomy, admitted for syncope and dizziness. 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 Found to have mild cardiomegaly; pulmonary venous congestion on CXR. CT head: Findings of small coup contusions at bilateral frontal and right temporal lobes without significant mass effect or even definite local edema. Right chronic lobar infarction. Age related degenerative changes appear age-appropriate. Bilateral basal ganglia chronic lacunes identified. Neurology and neurosurgery consulted. Awake and much more alert today. Dizziness improving, no more dizziness while sitting up in bed, but still dizzy upon standing. Plan: Coup contusions on CT - Secondary to fall due to dizziness - Head CT: bilateral frontal and right temporal lobes - Repeat Head CT today - Neurology consult pending - Neurosurgery consult - no intervention, rec appreciated - Neurocheck Q4 hrs - Physical therapy/ Occupational Therapy HTN - Resume home meds losartan - Start metoprolol 50 mg Q12 hrs - Hydralazine PRN Cardiomegaly, suspected CHF - ProBNP elevated - Echo ordered - Lasix 60 mg IVP Q12 CKD - Cr. 2.2 today, baseline avg 1.8-2 - Monitor renal function Hypertriglyceridemia/Hyperlipidemia - Resume home meds Diabetes - Accuchecks ACHS - Insulin coverage scale and hypoglycemia protocol - Hold home meds Hypothyroidism - TSH and Free T4 normal - Continue home dose synthroid Diet - Passed swallow screen - Heart healthy/moderate carb diet GI Prophylaxis -Protonix 20 mg daily DVT prophylaxis - SCD <Radha Jenkins - Last Filed: 12/29/17 13:34> Objective - Vital Signs/Intake and Output Vital Signs (last 24 hours): Temp Pulse Resp BP Pulse Ox 98.1 F 79 13 142/68 97 12/29/17 11:54 12/29/17 11:54 12/29/17 11:54 12/29/17 12:15 12/29/17 11:54 Intake and Output: 12/29/17 12/29/17 06:59 18:59 Output Total 100 Balance -100 - Medications Medications: Current Medications Dextrose (Dextrose 50% Inj) 0 ml IV STAT PRN; Protocol PRN Reason: Hypoglycemia Protocol Dextrose (Glutose 15) 0 gm PO ONCE PRN; Protocol PRN Reason: Hypoglycemia Protocol Ergocalciferol (Drisdol 50,000 Intl Units Cap) 1 cap PO QWK [facility] Furosemide (Lasix) 60 mg IVP Q12H [facility] Last Admin: 12/29/17 12:15 Dose: 60 mg Glucagon (Glucagen Diagnostic Kit) 0 mg IM STAT PRN; Protocol PRN Reason: Hypoglycemia Protocol Hydralazine HCl (Apresoline) 10 mg IV Q6 PRN PRN Reason: Systolic Blood Pressure Insulin Human Lispro (Humalog) 0 units SC [facility]; Protocol Last Admin: 12/29/17 11:59 Dose: Not Given Labetalol HCl (Trandate) 20 mg IVP Q4 PRN PRN Reason: Systolic Blood Pressure Levothyroxine Sodium (Synthroid) 75 mcg PO DAILY@0630 [facility] Last Admin: 12/29/17 05:44 Dose: 75 mcg Losartan Potassium (Cozaar) 100 mg PO DAILY [facility] Last Admin: 12/29/17 09:35 Dose: 100 mg Metoprolol Tartrate (Lopressor) 50 mg PO Q12 [facility] Last Admin: 12/29/17 09:41 Dose: 50 mg Pantoprazole Sodium (Protonix Ec Tab) 20 mg PO DAILY [facility] Last Admin: 12/29/17 09:43 Dose: 20 mg Pravastatin Sodium (Pravachol) 20 mg PO HS ASHLEY Last Admin: 12/28/17 21:42 Dose: 20 mg - Labs Labs: 12/29/17 04:30 12/29/17 04:30 PT 10.2 Seconds (9.8-13.1) 12/28/17 12:25 INR 0.9 12/28/17 12:25 APTT 26.3 Seconds (25.6-37.1) 12/28/17 12:25 Attending/Attestation - Attestation I have personally seen and examined this patient.: Yes I have fully participated in the care of the patient.: Yes I have reviewed all pertinent clinical information, including history, physical exam and plan: Yes Notes (Text): 12/29/17 13:34 Seen, examined, and discussed with resident. Agree with findings and plan as above.
[2017-12-29] MEDS: Insulin Lispro (humaLOG) 100 Units/ml Inj SC SCH ×3 (11:59→22:06)
[2017-12-29 12:04] VITALS: BMI 23.3
--- NOTE | 2017-12-29 17:06 | CT ---
Date of service: 12/29/2017 PROCEDURE: CT HEAD WITHOUT CONTRAST. HISTORY: f/u CT from admission, coup contusions? COMPARISON: Comparison made with CT scan brain dated 12/28/2017. The at TECHNIQUE: Axial computed tomography images were obtained through the head/brain without intravenous contrast. Radiation dose: Total exam DLP = 834.18 mGy-cm. This CT exam was performed using one or more of the following dose reduction techniques: Automated exposure control, adjustment of the mA and/or kV according to patient size, and/or use of iterative reconstruction technique. FINDINGS: HEMORRHAGE: No intracranial hemorrhage. There are small hemorrhagic foci again seen in the frontal cortical/subcortical regions bilaterally right larger than left.. Some adjacent on minimal subarachnoid hemorrhage not completely excluded.. Slightly prominent on right frontal subarachnoid space could be secondary to developing tiny subdural hygroma in addition to of more localized bifrontal cortical atrophic changes. No definitive new hemorrhages are identified.. BRAIN: Also again noted is a discrete chronic appearing deep right frontal lobe white matter infarct with mild moderate chronic periventricular white matter ischemic changes and scattered deep as well as subcortical more discrete chronic infarct changes.. Also multiple scattered chronic bilateral basal nuclei lacunar type infarcts also again noted.. Also again noted is an elliptical shaped area of low attenuation within the mid alvin that could represent an age-indeterminate infarct. Clinical correlation with history recommended. No obvious parenchymal on masses or collections. Moderate to fairly significant generalized volume loss. Vascular calcifications both carotid siphons and vertebral arteries again seen. VENTRICLES: No obstructive hydrocephalus. CALVARIUM: No definitive acute calvarial fracture seen PARANASAL SINUSES: Unremarkable as visualized. No significant inflammatory changes. MASTOID AIR CELLS: Unremarkable as visualized. No inflammatory changes. OTHER FINDINGS: Orbits and contents unremarkable.. IMPRESSION: Redemonstrated are small bilateral anterior frontal lobe cortical/subcortical parenchymal contusional changes right larger than left. There may also be small amount of adjacent subarachnoid hemorrhage. Prominent right frontal subarachnoid space; rule out developing small subdural hygroma in addition to more localized bilateral frontal cortical atrophic changes. Chronic white matter and basal nuclei ischemic changes. Questionable on age-indeterminate pontine infarct. Moderate to fairly significant generalized volume loss.
--- NOTE | 2017-12-29 20:11 | CARD ---
APPROVED REPORT Date of service: 12/29/2017 EXAM: Two-dimensional and M-mode echocardiogram with Doppler and color Doppler. Other Information Quality : AverageRhythm : NSR INDICATION Cardiomyopathy 2D DIMENSIONS IVSd1.79 (0.7-1.1cm)LVDd4.24 (3.9-5.9cm) LVOT Diameter1.86 (1.8-2.4cm)PWd0.90 (0.7-1.1cm) IVSs1.89 (0.8-1.2cm)LVDs4.03 (2.5-4.0cm) FS (%) 4.9 %PWs1.04 (0.8-1.2cm) M-Mode DIMENSIONS Left Atrium (MM)3.35 (2.5-4.0cm)IVSd1.24 (0.7-1.1cm) Aortic Root3.65 (2.2-3.7cm)LVDd4.71 (4.0-5.6cm) Aortic Cusp Exc.1.47 (1.5-2.0cm)PWd1.09 (0.7-1.1cm) IVSs1.47 cmFS (%) 30 % LVDs3.29 (2.0-3.8cm)PWs1.47 cm Aortic Valve AoV Peak Kyncslzv147.2cm/sAoV VTI30.0cmAO Peak GR.11mmHg LVOT Peak Roxdjoww69.5cm/sLVOT VTI16.35cmAO Mean GR.7mmHg ROSS (VMAX)0.53aj1EUZ (VTI)0.04hp5BK P 1/2 Nswv137xq Mitral Valve MV E Jvqbireq06.5cm/sMV DECEL [id number] A Ogjwnszn641.5cm/s MV NTU93xeE/A ratio0.6MVA (PHT)3.18cm2 TDI Lateral E' Peak V4.56cm/sMedial E' Peak V4.64cm/sE/Lateral E'13.0 E/Medial E'12.8 Tricuspid Valve TR Peak Mxlwlxnl47wa/sRAP VHXSANQI18egFwAU Peak Gr.3mmHg [id number] LEFT VENTRICLE The left ventricle is normal size. There is mild concentric left ventricular hypertrophy. The systolic function is mildly impaired. The estimated ejection fraction is 45-50% No regional wall motion abnormalities noted.. Transmitral Doppler flow pattern is Grade I-abnormal relaxation pattern. No left ventricle thrombus noted on this study. There is no ventricular septal defect visualized. There is no left ventricular aneurysm. There is no mass noted in the left ventricle. RIGHT VENTRICLE The right ventricle is normal size. There is normal right ventricular wall thickness. The right ventricular systolic function is normal. ATRIA The left atrium size is normal. The right atrium size is normal. The interatrial septum is intact with no evidence for an atrial septal defect. AORTIC VALVE The aortic valve is normal in structure. Mild to moderate aortic regurgitation is present. There is no aortic valvular stenosis. There is no aortic valvular vegetation. MITRAL VALVE The mitral valve is normal in structure. There is no evidence of mitral valve prolapse. There is no mitral valve stenosis. There is mild mitral valve regurgitation noted. TRICUSPID VALVE The tricuspid valve is normal in structure. There is trace tricuspid valve regurgitation noted. There is no tricuspid valve prolapse or vegetation. There is no tricuspid valve stenosis. PULMONIC VALVE The pulmonary valve is normal in structure. There is no pulmonic valvular regurgitation. There is no pulmonic valvular stenosis. GREAT VESSELS The aortic root is normal in size. The ascending aorta is normal in size. The pulmonary artery is normal. The IVC is normal in size and collapses >50% with inspiration. PERICARDIAL EFFUSION There is no pericardial effusion. There is no pleural effusion. <Conclusion> Technically difficult study There is mild concentric left ventricular hypertrophy. The systolic function is mildly impaired. The estimated ejection fraction is 45-50% Transmitral Doppler flow pattern is Grade I-abnormal relaxation pattern. Mild to moderate aortic regurgitation is present. There is mild mitral valve regurgitation noted.
[2017-12-29] MEDS: Pravastatin Sodium 20 MG TAB PO SCH (21:23)
--- NOTE | 2017-12-30 02:24 | CP.PCM.CON ---
History of Present Illness - History of Present Illness History of Present Illness: Neurology consult dicated. In brief, Mr So has a small bleed that is not operable at this time, and he is stable. Neuro exam is normal. Dr dee Past Patient History - Infectious Disease Hx of Infectious Diseases: None - Past Medical History & Family History Past Medical History?: Yes - Past Social History Smoking Status: Never Smoked Alcohol: None Drugs: Denies - CARDIAC Hx Hypercholesterolemia: Yes Hx Hypertension: Yes - PULMONARY Hx Respiratory Disorders: No - NEUROLOGICAL Hx Transient Ischemic Attacks (TIA): Yes - HEENT Hx HEENT Problems: Yes Hx Cataracts: Yes - RENAL Hx Chronic Kidney Disease: Yes (NEPHRECTOMY 2006 RIGHT BENIGN MASS) - ENDOCRINE/METABOLIC Hx Diabetes Mellitus Type 2: Yes - HEMATOLOGICAL/ONCOLOGICAL Hx AIDS: No Hx Anemia: Yes Hx Human Immunodeficiency Virus (HIV): No - INTEGUMENTARY Hx Dermatological Problems: Yes (DARKENED AREAS LEGS ANF FEET) - MUSCULOSKELETAL/RHEUMATOLOGICAL Hx Musculoskeletal Disorders: Yes Hx Falls: Yes Hx Osteoarthritis: Yes - GASTROINTESTINAL Hx Gall Bladder Disease: Yes - GENITOURINARY/GYNECOLOGICAL Hx Genitourinary Disorders: Yes Hx Prostate Problems: Yes (TURP 03/09) - PSYCHIATRIC Hx Psychophysiologic Disorder: No Hx Substance Use: No - SURGICAL HISTORY Hx Surgeries: Yes Hx Herniorrhaphy: Yes Other/Comment: Nephrectomy R kidney 2005,TURP in 2005. Prostate surgery. RIGHT NEPHRECTOMY - ANESTHESIA Hx Anesthesia: Yes Hx Anesthesia Reactions: No Hx Malignant Hyperthermia: No Meds Allergies/Adverse Reactions: Allergies Allergy/AdvReac Type Severity Reaction Status Date / Time No Known Allergies Allergy Verified 12/28/17 11:24 - Medications Medications: Current Medications Dextrose (Dextrose 50% Inj) 0 ml IV STAT PRN; Protocol PRN Reason: Hypoglycemia Protocol Dextrose (Glutose 15) 0 gm PO ONCE PRN; Protocol PRN Reason: Hypoglycemia Protocol Ergocalciferol (Drisdol 50,000 Intl Units Cap) 1 cap PO QWK [facility] Furosemide (Lasix) 60 mg IVP Q12H [facility] Last Admin: 12/30/17 00:32 Dose: 60 mg Glucagon (Glucagen Diagnostic Kit) 0 mg IM STAT PRN; Protocol PRN Reason: Hypoglycemia Protocol Hydralazine HCl (Apresoline) 10 mg IV Q6 PRN PRN Reason: Systolic Blood Pressure Insulin Human Lispro (Humalog) 0 units SC ACHS [facility]; Protocol Last Admin: 12/29/17 22:06 Dose: Not Given Labetalol HCl (Trandate) 20 mg IVP Q4 PRN PRN Reason: Systolic Blood Pressure Levothyroxine Sodium (Synthroid) 75 mcg PO DAILY@0630 [facility] Last Admin: 12/29/17 05:44 Dose: 75 mcg Losartan Potassium (Cozaar) 100 mg PO DAILY [facility] Last Admin: 12/29/17 09:35 Dose: 100 mg Meclizine HCl (Antivert) 25 mg PO BID PRN PRN Reason: Dizziness Last Admin: 12/29/17 21:23 Dose: 25 mg Metoprolol Tartrate (Lopressor) 50 mg PO Q12 [facility] Last Admin: 12/29/17 21:23 Dose: 50 mg Pantoprazole Sodium (Protonix Ec Tab) 20 mg PO DAILY [facility] Last Admin: 12/29/17 09:43 Dose: 20 mg Pravastatin Sodium (Pravachol) 20 mg PO HS [facility] Last Admin: 12/29/17 21:23 Dose: 20 mg Results - Vital Signs Recent Vital Signs: Last Vital Signs Temp 98 F 12/30/17 01:00 Pulse 67 12/30/17 01:00 Resp 18 12/30/17 01:00 BP 134/68 12/30/17 01:00 Pulse Ox 96 12/30/17 01:00 - Labs Result Diagrams: 12/29/17 04:30 12/29/17 04:30 Labs: Laboratory Results - last 24 hr 12/28/17 12/28/17 12/28/17 14:39 18:42 21:47 WBC RBC Hgb Hct MCV MCH MCHC RDW Plt Count MPV Neut % (Auto) Lymph % (Auto) [place] % (Auto) Eos % (Auto) Baso % (Auto) Neut # (Auto) Lymph # (Auto) [place] # (Auto) Eos # (Auto) Baso # (Auto) Sodium Potassium Chloride Carbon Dioxide Anion Gap BUN Creatinine Est GFR ( Amer) Est GFR (Non-Af Amer) POC Glucose (mg/dL) 121 H 119 H Random Glucose Calcium Magnesium Total Bilirubin AST ALT Alkaline Phosphatase NT-Pro-B Natriuret Pep Total Protein Albumin Globulin Albumin/Globulin Ratio Free T4 TSH 3rd Generation Stool Leukocytes, Qual Negative 12/29/17 12/29/17 12/29/17 04:30 04:30 04:30 WBC 11.9 H RBC 3.63 L Hgb 11.4 L Hct 34.2 L MCV 94.2 H D MCH 31.4 H MCHC 33.3 RDW 14.4 Plt Count 216 MPV 9.0 Neut % (Auto) 73.3 Lymph % (Auto) 13.8 L [place] % (Auto) 11.9 H Eos % (Auto) 0.4 Baso % (Auto) 0.6 Neut # (Auto) 8.7 H Lymph # (Auto) 1.6 [place] # (Auto) 1.4 H Eos # (Auto) 0.0 Baso # (Auto) 0.1 Sodium 144 Potassium 4.2 Chloride 114 H Carbon Dioxide 22 Anion Gap 12 BUN 39 H Creatinine 2.2 H Est GFR ( Amer) 35 Est GFR (Non-Af Amer) 29 POC Glucose (mg/dL) Random Glucose 127 H Calcium 9.3 Magnesium 2.1 Total Bilirubin 1.4 H AST 22 ALT 25 Alkaline Phosphatase 107 NT-Pro-B Natriuret Pep 5840 H Total Protein 7.5 Albumin 4.0 Globulin 3.5 Albumin/Globulin Ratio 1.1 Free T4 0.95 TSH 3rd Generation 1.27 Stool Leukocytes, Qual 12/29/17 12/29/17 12/29/17 05:10 11:21 16:55 WBC RBC Hgb Hct MCV MCH MCHC RDW Plt Count MPV Neut % (Auto) Lymph % (Auto) [place] % (Auto) Eos % (Auto) Baso % (Auto) Neut # (Auto) Lymph # (Auto) [place] # (Auto) Eos # (Auto) Baso # (Auto) Sodium Potassium Chloride Carbon Dioxide Anion Gap BUN Creatinine Est GFR ( Amer) Est GFR (Non-Af Amer) POC Glucose (mg/dL) 118 H 126 H 94 Random Glucose Calcium Magnesium Total Bilirubin AST ALT Alkaline Phosphatase NT-Pro-B Natriuret Pep Total Protein Albumin Globulin Albumin/Globulin Ratio Free T4 TSH 3rd Generation Stool Leukocytes, Qual 12/29/17 21:17 WBC RBC Hgb Hct MCV MCH MCHC RDW Plt Count MPV Neut % (Auto) Lymph % (Auto) [place] % (Auto) Eos % (Auto) Baso % (Auto) Neut # (Auto) Lymph # (Auto) [place] # (Auto) Eos # (Auto) Baso # (Auto) Sodium Potassium Chloride Carbon Dioxide Anion Gap BUN Creatinine Est GFR ( Amer) Est GFR (Non-Af Amer) POC Glucose (mg/dL) 95 Random Glucose Calcium Magnesium Total Bilirubin AST ALT Alkaline Phosphatase NT-Pro-B Natriuret Pep Total Protein Albumin Globulin Albumin/Globulin Ratio Free T4 TSH 3rd Generation Stool Leukocytes, Qual
[2017-12-30] MEDS: Levothyroxine 75 MCG TAB PO SCH (06:21)
[2017-12-30 07:43] LABS: HEMOGLOBIN 12.3 g/dL (12.0-18.0); MEAN CELL VOLUME 94.7 fl (80.0-94.0); MEAN CORPUSCULAR HEMOGLOBIN 31.8 pg (27.0-31.0); MEAN CORPUSCULAR HGB CONC 33.5 g/dL (33.0-37.0); RBC 3.86 Mil/uL (4.40-5.90); RED CELL DISTRIBUTION WIDTH 14.6 % (11.5-14.5); WHITE BLOOD COUNT 13.4 K/uL (4.8-10.8)
[2017-12-30 07:48] LABS: ALB/GLOB RATIO 1.2 (1.0-2.1); ALBUMIN 4.4 g/dL (3.5-5.0); CALCIUM 9.5 mg/dL (8.4-10.2)
[2017-12-30] MEDS: Insulin Lispro (humaLOG) 100 Units/ml Inj SC SCH ×3 (11:15→16:20)
[2017-12-30] MEDS: Pantoprazole 20 mg EC Tab PO SCH (11:18)
--- NOTE | 2017-12-30 12:57 | CP.PCM.PN ---
Subjective - Date & Time of Evaluation Date of Evaluation: 12/30/17 Time of Evaluation: 09:50 - Subjective Subjective: Pt seen/eval at bedside. Was eating breakfast, no acute distress. States he still feels some dizziness. Objective - Vital Signs/Intake and Output Vital Signs (last 24 hours): Temp Pulse Resp BP Pulse Ox 98.5 F 75 18 124/70 100 12/30/17 08:00 12/30/17 11:17 12/30/17 08:00 12/30/17 11:42 12/30/17 08:00 Intake and Output: 12/30/17 12/30/17 06:59 18:59 Output Total 150 Balance -150 - Medications Medications: Current Medications Dextrose (Dextrose 50% Inj) 0 ml IV STAT PRN; Protocol PRN Reason: Hypoglycemia Protocol Dextrose (Glutose 15) 0 gm PO ONCE PRN; Protocol PRN Reason: Hypoglycemia Protocol Ergocalciferol (Drisdol 50,000 Intl Units Cap) 1 cap PO QWK [facility] Furosemide (Lasix) 60 mg IVP Q12H [facility] Last Admin: 12/30/17 11:42 Dose: 60 mg Glucagon (Glucagen Diagnostic Kit) 0 mg IM STAT PRN; Protocol PRN Reason: Hypoglycemia Protocol Hydralazine HCl (Apresoline) 10 mg IV Q6 PRN PRN Reason: Systolic Blood Pressure Insulin Human Lispro (Humalog) 0 units SC ACHS [facility]; Protocol Last Admin: 12/30/17 11:43 Dose: Not Given Labetalol HCl (Trandate) 20 mg IVP Q4 PRN PRN Reason: Systolic Blood Pressure Levothyroxine Sodium (Synthroid) 75 mcg PO DAILY@0630 [facility] Last Admin: 12/30/17 06:21 Dose: 75 mcg Losartan Potassium (Cozaar) 100 mg PO DAILY [facility] Last Admin: 12/30/17 11:13 Dose: 100 mg Meclizine HCl (Antivert) 25 mg PO BID PRN PRN Reason: Dizziness Last Admin: 12/29/17 21:23 Dose: 25 mg Metoprolol Tartrate (Lopressor) 50 mg PO Q12 [facility] Last Admin: 12/30/17 11:17 Dose: 50 mg Pantoprazole Sodium (Protonix Ec Tab) 20 mg PO DAILY [facility] Last Admin: 12/30/17 11:18 Dose: 20 mg Pravastatin Sodium (Pravachol) 20 mg PO HS [facility] Last Admin: 12/29/17 21:23 Dose: 20 mg - Labs Labs: 12/30/17 07:07 12/30/17 07:07 PT 10.2 Seconds (9.8-13.1) 12/28/17 12:25 INR 0.9 12/28/17 12:25 APTT 26.3 Seconds (25.6-37.1) 12/28/17 12:25 - Constitutional Appears: No Acute Distress - Head Exam Head Exam: NORMOCEPHALIC - ENT Exam ENT Exam: Mucous Membranes Moist - Respiratory Exam Respiratory Exam: NORMAL BREATHING PATTERN. absent: Wheezes - Cardiovascular Exam Cardiovascular Exam: REGULAR RHYTHM, +S1, +S2 - GI/Abdominal Exam GI & Abdominal Exam: Soft, Normal Bowel Sounds - Extremities Exam Extremities Exam: absent: Calf Tenderness - Neurological Exam Neurological Exam: Alert, Awake - Psychiatric Exam Psychiatric exam: Normal Mood Assessment and Plan - Assessment and Plan (Free Text) Assessment: 82 yo male with history of HTN, DM2, hyperlipidemia, hypothyroidism, anemia, col on polyps, CKD, with history of R sided nephrectomy and prostatectomy, admitted for syncope and dizziness. 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 Found to have mild cardiomegaly; pulmonary venous congestion on CXR. CT head: Findings of small coup contusions at bilateral frontal and right temporal lobes without significant mass effect or even definite local edema. Right chronic lobar infarction. Age related degener ative changes appear age-appropriate. Bilateral basal ganglia chronic lacunes identified. Neurology and neurosurgery consulted; no intervention as per neurosurg. Awake and alert today. Dizziness improved from admission, no more dizziness while sitting up in bed, but still dizzy upon standing with PT yesterday. Plan: Coup contusions on CT - Secondary to fall due to dizziness - Head CT: bilateral frontal and right temporal lobes; repeat redemonstrated contusions - Neurology consult - Neurosurgery consult - no intervention, rec appreciated - Neurocheck Q4 hrs - Continiue with Physical therapy/ Occupational Therapy HTN - Resume home meds losartan - Start metoprolol 50 mg Q12 hrs - Hydralazine PRN Cardiomegaly, suspected CHF - ProBNP elevated - Echo ordered; EF 45-50% CKD - Cr. 3.1 today, baseline avg 1.8-2 - Gentle hydration 80 ml/hr Hypertriglyceridemia/Hyperlipidemia - Resume home meds Diabetes - Accuchecks ACHS - Insulin coverage scale and hypoglycemia protocol - Hold home meds Hypothyroidism - TSH and Free T4 normal - Continue home dose synthroid Diet - Passed swallow screen - Heart healthy/moderate carb diet GI Prophylaxis -Protonix 20 mg daily DVT prophylaxis - SCD
[2017-12-30] MEDS ORDERED: Sodium Chloride 0.9% 1,000 ML IV SCH (13:30)
--- NOTE | 2017-12-30 14:04 | CP.PCM.DIS ---
Provider - Provider Date of Admission: 12/28/17 13:48 Attending physician: Dangelo Lance Primary care physician: Dr. Garcia Consults: Neurology Neurosurgery Time Spent in preparation of Discharge (in minutes): 30 Diagnosis - Discharge Diagnosis (1) Cerebral contusion without loss of consciousness Status: Acute (2) Dizziness Status: Acute Hospital Course - Lab Results Lab Results: Micro Results 12/28/17 19:15 Naris MRSA Culture (Admit) - Final MRSA NOT DETECTED 12/28/17 14:39 Stool Stool Culture - Final NO SALMONELLA, SHIGELLA OR CAMPYLOBACTER ISOLATED. Most Recent Lab Values WBC 13.4 K/uL (4.8-10.8) H 12/30/17 07:07 RBC 3.86 Mil/uL (4.40-5.90) L 12/30/17 07:07 Hgb 12.3 g/dL (12.0-18.0) 12/30/17 07:07 Hct 36.6 % (35.0-51.0) 12/30/17 07:07 MCV 94.7 fl (80.0-94.0) H 12/30/17 07:07 MCH 31.8 pg (27.0-31.0) H 12/30/17 07:07 MCHC 33.5 g/dL (33.0-37.0) 12/30/17 07:07 RDW 14.6 % (11.5-14.5) H 12/30/17 07:07 Plt Count 246 K/uL (130-400) 12/30/17 07:07 MPV 9.0 fl (7.2-11.7) 12/29/17 04:30 Neut % (Auto) 73.3 % (50.0-75.0) 12/29/17 04:30 Lymph % (Auto) 13.8 % (20.0-40.0) L 12/29/17 04:30 [place] % (Auto) 11.9 % (0.0-10.0) H 12/29/17 04:30 Eos % (Auto) 0.4 % (0.0-4.0) 12/29/17 04:30 Baso % (Auto) 0.6 % (0.0-2.0) 12/29/17 04:30 Neut # (Auto) 8.7 K/uL (1.8-7.0) H 12/29/17 04:30 Lymph # (Auto) 1.6 K/uL (1.0-4.3) 12/29/17 04:30 [place] # (Auto) 1.4 K/uL (0.0-0.8) H 12/29/17 04:30 Eos # (Auto) 0.0 K/uL (0.0-0.7) 12/29/17 04:30 Baso # (Auto) 0.1 K/uL (0.0-0.2) 12/29/17 04:30 PT 10.2 Seconds (9.8-13.1) 12/28/17 12:25 INR 0.9 12/28/17 12:25 APTT 26.3 Seconds (25.6-37.1) 12/28/17 12:25 Sodium 141 mmol/l (132-148) 12/30/17 07:07 Potassium 4.1 MMOL/L (3.6-5.0) 12/30/17 07:07 Chloride 106 mmol/L (98-107) 12/30/17 07:07 Carbon Dioxide 24 mmol/L (22-30) 12/30/17 07:07 Anion Gap 15 (10-20) 12/30/17 07:07 BUN 55 mg/dl (9-20) H 12/30/17 07:07 Creatinine 3.1 mg/dl (0.8-1.5) H 12/30/17 07:07 Est GFR ( Amer) 23 12/30/17 07:07 Est GFR (Non-Af Amer) 19 12/30/17 07:07 POC Glucose (mg/dL) 141 mg/dL (65-110) H 12/30/17 10:35 Random Glucose 115 mg/dL (75-110) H 12/30/17 07:07 Hemoglobin A1c 5.7 % (4.2-6.5) 12/28/17 14:32 Calcium 9.5 mg/dL (8.4-10.2) 12/30/17 07:07 Magnesium 2.1 MG/DL (1.6-2.3) 12/29/17 04:30 Total Bilirubin 2.1 mg/dl (0.2-1.3) H 12/30/17 07:07 AST 26 U/L (17-59) 12/30/17 07:07 ALT 33 U/L (21-72) 12/30/17 07:07 Alkaline Phosphatase 124 U/L (38-126) 12/30/17 07:07 Troponin I 0.0430 ng/mL (0.00-0.120) 12/28/17 12:25 NT-Pro-B Natriuret Pep 5840 pg/ml (0-900) H 12/29/17 04:30 Total Protein 8.3 G/DL (6.3-8.2) H 12/30/17 07:07 Albumin 4.4 g/dL (3.5-5.0) 12/30/17 07:07 Globulin 3.8 gm/dL (2.2-3.9) 12/30/17 07:07 Albumin/Globulin Ratio 1.2 (1.0-2.1) 12/30/17 07:07 Triglycerides 566 mg/DL (0-149) H 12/28/17 12:25 Cholesterol 217 mg/dL (0-199) H 12/28/17 12:25 LDL Cholesterol Direct 81 mg/dL (0-129) 12/28/17 12:25 HDL Cholesterol 38 MG/DL (30-70) 12/28/17 12:25 Free T4 0.95 ng/dL (0.78-2.19) 12/29/17 04:30 TSH 3rd Generation 1.27 mIU/ML (0.46-4.68) 12/29/17 04:30 Stool Leukocytes, Qual Negative (NEGATIVE) 12/28/17 14:39 Blood Type O POSITIVE 12/28/17 12:25 Antibody Screen Negative 12/28/17 12:25 BBK History Checked Patient has bt 12/28/17 12:25 - Hospital Course Hospital Course: 82 yo male with history of HTN, DM2, hyperlipidemia, hypothyroidism, anemia, colon polyps, CKD, with history of R sided nephrectomy and prostatectomy, admitted for syncope and dizziness. 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 Found to have mild cardiomegaly; pulmonary venous congestion on CXR. CT head: Findings of small coup contusions at bilateral frontal and right temporal lobes without significant mass effect or even definite local edema. Neurology and neurosurgery consulted; no surgical interventions recommended. Pt improved on medical floor, but continues to require skilled physical therapy, rec subacute rehab. After speaking with neurology, he will be discharged to subacute rehab today. He had a mild increase in creatinine after being diuresed; tonight, he should receive gentle hydration with normal saline 75 cc/hr overnight; and tomorrow BMP should be checked. Pt is awake, alert and oriented. Dizziness improving, no more dizziness while sitting up in bed, but still somewhat dizzy upon standing. Discharge Exam - Head Exam Head Exam: NORMOCEPHALIC - Eye Exam Eye Exam: Normal appearance - ENT Exam ENT Exam: Mucous Membranes Moist - Respiratory Exam Respiratory Exam: Clear to PA & Lateral, NORMAL BREATHING PATTERN - Cardiovascular Exam Cardiovascular Exam: REGULAR RHYTHM, +S1, +S2 - GI/Abdominal Exam GI & Abdominal Exam: Normal Bowel Sounds, Soft - Extremities Exam Additional comments: no swelling, no calf tenderness - Neurological Exam Neurological exam: Alert, Oriented x3 - Skin Skin Exam: Dry, Warm Discharge Plan - Follow Up Plan Condition: FAIR Disposition: REHAB FACILITY/REHAB UNIT Additional Instructions: PATIENT TO RECEIVE GENTLE HYDRATION NS AT 75 CC/HR OVERNIGHT AT [facility]. RECHECK BMP TOMORROW FOR MILD NICHOL
[2017-12-30 15:58] VITALS: BP 119/69; PULSE 74; RESP 16; TEMP 98.9; O2SAT 95
== END 2017-12-30 19:30 | DRG 87 ==
LOC: H.ER 11:08 → H.ERHOLD 13:48 → H.ICU/CCU 15:02 → H.TEL 12-29 23:31
PROVIDERS: ADMIT Hospitalist; ATTEND Hospitalist
PROC: F07Z9FZ Gait Training/Functional Ambulation Treatment using Assistive, Adaptive, Supportive or Protective Equipment (ICD-10-PCS; principal; 2017-12-29)
PROC: 3E02340 Introduction of Influenza Vaccine into Muscle, Percutaneous Approach (ICD-10-PCS; 2017-12-29)
PROC: 3E0234Z Introduction of Serum, Toxoid and Vaccine into Muscle, Percutaneous Approach (ICD-10-PCS; 2017-12-29)
DX: S06.330A Contusion and laceration of cerebrum, unspecified, without loss of consciousness, initial encounter (principal); I12.9 Hypertensive chronic kidney disease with stage 1 through stage 4 chronic kidney disease, or unspecified chronic kidney disease; N18.9 Chronic kidney disease, unspecified; E11.22 Type 2 diabetes mellitus with diabetic chronic kidney disease; E03.9 Hypothyroidism, unspecified; I44.7 Left bundle-branch block, unspecified; I51.7 Cardiomegaly; E78.00 Pure hypercholesterolemia, unspecified; E78.5 Hyperlipidemia, unspecified; E78.1 Pure hyperglyceridemia; D64.9 Anemia, unspecified; N40.0 Benign prostatic hyperplasia without lower urinary tract symptoms; W18.39XA Other fall on same level, initial encounter; Z23 Encounter for immunization; Z86.73 Personal history of transient ischemic attack (TIA), and cerebral infarction without residual deficits; Z86.010 Personal history of colon polyps; Z90.5 Acquired absence of kidney; Z79.82 Long term (current) use of aspirin; Z79.84 Long term (current) use of oral hypoglycemic drugs; Y92.009 Unspecified place in unspecified non-institutional (private) residence as the place of occurrence of the external cause